=== PATIENT | female | born 1950 | race Caucasian/White ===

== ENCOUNTER 2017-08-12 16:27 | Emergency (ER) | payer MEDICARE, MEDICAID ==
[~2017-08-12] VITALS: Ht 162.6 cm; Wt 77.1 kg
[2017-08-12 16:42] VITALS: BP 173/94
== END 2017-08-12 20:40 | disposition left against medical advice (07) ==
LOC: EDBD 16:27 → ER 16:29
DX: M25.561 Pain in right knee (principal); M25.551 Pain in right hip; Z53.21 Procedure and treatment not carried out due to patient leaving prior to being seen by health care provider